=== PATIENT | male | born 1950 | race Hispanic/Latino ===

== ENCOUNTER 2020-04-02 09:05 | Emergency (ER) | payer MEDICARE, OTHER ==
[~2020-04-02] VITALS: Ht 170.2 cm; Wt 63.5 kg
[~2020-04-02 09:05] MED LIST: PANTOPRAZOLE 40 MG 10ML VIAL IV NR
[2020-04-02] MEDS ORDERED: SODIUM CHLORIDE 0.9% 1000ML 1,000 ML IV STA (09:12)
[2020-04-02 09:35] LABS: BASOPHILS % 0.2 % (0.0-1.0); HEMATOCRIT 36.4 % (38.2-49.6); HEMOGLOBIN 12.5 g/dL (14.0-18.0); LYMPHOCYTES # (AUTO) 0.9 (1.0-3.2); LYMPHOCYTES % 8.5 % (18.0-39.1); MEAN CORPUSCULAR HEMOGLOBIN 30.3 pg (28-32); MEAN CORPUSCULAR HGB CONC 34.3 g/dL (31-35); MEAN CORPUSCULAR VOLUME 88.1 fL (81-99); MONOCYTES # (AUTO) 0.6 (0.2-0.8); MONOCYTES % 5.2 % (4.4-11.3); NEUTROPHILS # (AUTO) 9.5 (2.1-6.9); NEUTROPHILS % 85.6 % (38.7-80.0); PLATELET COUNT 259 x10e3/uL (140-360); RED BLOOD COUNT 4.13 x10e6/uL (4.3-5.7); RED CELL DISTRIBUTION WIDTH 12.9 % (11.7-14.4)
[2020-04-02 09:45] LABS: INR 0.96; PROTHROMBIN TIME 13.3 seconds (11.9-14.5)
[2020-04-02 09:56] LABS: ALANINE AMINOTRANSFERASE 116 IU/L (0-55); ALBUMIN 3.3 g/dL (3.5-5.0); ALBUMIN/GLOBULIN RATIO 0.8 (0.8-2.0); ALKALINE PHOSPHATASE 63 IU/L (40-150); ANION GAP 13.5 mmol/L (8-16); BLOOD UREA NITROGEN 28 mg/dL (7-26); BUN/CREATININE RATIO 26 (6-25); CALCIUM 8.9 mg/dL (8.4-10.2); CARBON DIOXIDE 16 mmol/L (22-29); CHLORIDE 110 mmol/L (98-107); CREATINE KINASE 446 IU/L (30-200); CREATININE, SERUM 1.06 mg/dL (0.72-1.25); EST GLOMERULAR FILTRATION RATE > 60 ML/MIN (60-); GLUCOSE 121 mg/dL (74-118); MAGNESIUM 2.3 MG/DL (1.3-2.1); POTASSIUM 3.5 mmol/L (3.5-5.1); SODIUM 136 mmol/L (136-145)
--- NOTE | 2020-04-02 11:02 | Diagnostic Imaging Report ---
EXAMINATION: CHEST SINGLE (PORTABLE) INDICATION: loss of taste, decr po intake COMPARISON: None FINDINGS: AP view TUBES and LINES: None. LUNGS/PLEURA: Lungs are well inflated. There are bilateral patchy opacities predominantly in lower lobes could represent multifocal pneumonia. There is no pleural effusion or pneumothorax. HEART AND MEDIASTINUM: The cardiomediastinal silhouette is unremarkable. BONES AND SOFT TISSUES: No acute osseous lesion. Soft tissues are unremarkable. UPPER ABDOMEN: No free air under the diaphragm. IMPRESSION: Bilateral patchy opacities predominantly in lower lobes could represent multifocal pneumonia in appropriate clinical setting. Signed by: Demetri Villa MD on 04/02/2020 10:58 AM
--- NOTE | 2020-04-02 13:17 | NUR ---
Maru [phone].
--- NOTE | 2020-04-02 14:31 | Emergency Department Note ---
History of Present Illnes History of Present Illness Chief Complaint: COVID PUI History of Present Illness This is a 70 year old male c/o inability to eat x 5 days, LOSS OF APPETITE/LOSS OF TASTE, cough, muscle aches. Historian: Patient Arrival Mode: Car Rotary Shear Cutter Required: No Onset (how long ago): day(s) (5) Radiation: Reports non-radiation Severity: moderate Onset quality: sudden Timing of current episode: constant Progression: unchanged Chronicity: new Context: Denies recent illness Relieving factors: none Exacerbating factors: none Associated symptoms: Reports denies other symptoms Treatments prior to arrival: none Past Medical/Family History Physician Review I have reviewed the patient's past medical and family history. Any updates have been documented here. Past Medical History Recent Fever: No Clinical Suspicion of Infectio: Yes New/Unexplained Change in Ment: No Past Medical History: Hypertension, Hyperlipedemia Other Surgery: stents Social History Smoking Cessation: Never Smoker Counseling Performed: No Alcohol Use: None Any Illegal Drug Use: No Other Any Pre-Existing Lines (PICC,: No Review of Systems Review of Systems Constitutional: Reports no symptoms EENTM: Reports no symptoms Cardiovascular: Reports no symptoms Respiratory: Reports no symptoms Gastrointestinal: Reports as per HPI Genitourinary: Reports no symptoms Musculoskeletal: Reports no symptoms Integumentary: Reports no symptoms Neurological: Reports no symptoms Psychological: Reports no symptoms Endocrine: Reports no symptoms Hematological/Lymphatic: Reports no symptoms Physical Exam Related Data Allergies: Coded Allergies: No Known Allergies (Unverified , 04/02/20) Triage Vital Signs Vital Signs Date Time Temp Pulse Resp B/P (MAP) Pulse Ox O2 Delivery O2 Flow Rate FiO2 04/02/20 09:10 98.0 115 18 119/65 98 04/02/20 09:10 Room Air Vital signs reviewed: Yes Physical Exam CONSTITUTIONAL Constitutional: Present well-developed, Present well-nourished HENT HENT: Present mucosae dry HENT L/R: Present left ext ear normal, Present right ext ear normal EYES Eyes: Reports PERRL, Reports conjunctivae normal NECK Neck: Present ROM normal PULMONARY Pulmonary: Present effort normal, Present breath sounds normal CARDIOVASCULAR Cardiovascular: Present regular rhythm, Present heart sounds normal, Present capillary refill normal, Present normal rate GASTROINTESTINAL Abdominal: Present soft, Present nontender, Present bowel sounds normal GENITOURINARY Genitourinary: Present exam deferred SKIN Skin: Present warm, Present dry MUSCULOSKELETAL Musculoskeletal: Present ROM normal NEUROLOGICAL Neurological: Present alert, Present oriented x 3, Present no gross motor or sensory deficits PSYCHOLOGICAL Psychological: Present mood/affect normal, Present judgement normal Results Laboratory Result Diagram: 04/02/2025 04/02/20 0925 Laboratory Laboratory Tests Test 04/02/20 11:54 04/02/20 09:25 White Blood Count 11.11 x10e3/uL (4.8-10.8) Red Blood Count 4.13 x10e6/uL (4.3-5.7) Hemoglobin 12.5 g/dL (14.0-18.0) Hematocrit 36.4 % (38.2-49.6) Mean Corpuscular Volume 88.1 fL (81-99) Mean Corpuscular Hemoglobin 30.3 pg (28-32) Mean Corpuscular Hemoglobin Concent 34.3 g/dL (31-35) Red Cell Distribution Width 12.9 % (11.7-14.4) Platelet Count 259 x10e3/uL (140-360) Neutrophils (%) (Auto) 85.6 % (38.7-80.0) Lymphocytes (%) (Auto) 8.5 % (18.0-39.1) Monocytes (%) (Auto) 5.2 % (4.4-11.3) Eosinophils (%) (Auto) 0.0 % (0.0-6.0) Basophils (%) (Auto) 0.2 % (0.0-1.0) Neutrophils # (Auto) 9.5 (2.1-6.9) Lymphocytes # (Auto) 0.9 (1.0-3.2) Monocytes # (Auto) 0.6 (0.2-0.8) Eosinophils # (Auto) 0.0 (0.0-0.4) Basophils # (Auto) 0.0 (0.0-0.1) Absolute Immature Granulocyte (auto 0.06 x10e3/uL (0-0.1) Prothrombin Time 13.3 seconds (11.9-14.5) Prothromb Time International Ratio 0.96 Activated Partial Thromboplast Time 30.0 seconds (23.8-35.5) Sodium Level 136 mmol/L (136-145) Potassium Level 3.5 mmol/L (3.5-5.1) Chloride Level 110 mmol/L (98-107) Carbon Dioxide Level 16 mmol/L (22-29) Anion Gap 13.5 mmol/L (8-16) Blood Urea Nitrogen 28 mg/dL (7-26) Creatinine 1.06 mg/dL (0.72-1.25) Estimat Glomerular Filtration Rate > 60 ML/MIN (60-) BUN/Creatinine Ratio 26 (6-25) Glucose Level 121 mg/dL (74-118) Calcium Level 8.9 mg/dL (8.4-10.2) Magnesium Level 2.3 MG/DL (1.3-2.1) Total Bilirubin 0.6 mg/dL (0.2-1.2) Aspartate Amino Transf (AST/SGOT) 62 IU/L (5-34) Alanine Aminotransferase (ALT/SGPT) 116 IU/L (0-55) Alkaline Phosphatase 63 IU/L (40-150) Creatine Kinase 446 IU/L (30-200) Creatine Kinase MB 1.40 ng/mL (0-5.0) Troponin I 0.042 ng/mL (0-0.300) Total Protein 7.3 g/dL (6.5-8.1) Albumin 3.3 g/dL (3.5-5.0) Globulin 4.0 g/dL (2.3-3.5) Albumin/Globulin Ratio 0.8 (0.8-2.0) Lab results reviewed: Yes Imaging Imaging results reviewed: Yes Impressions EXAMINATION: CHEST SINGLE (PORTABLE) INDICATION: loss of taste, decr po intake COMPARISON: None FINDINGS: AP view TUBES and LINES: None. LUNGS/PLEURA: Lungs are well inflated. There are bilateral patchy opacities predominantly in lower lobes could represent multifocal pneumonia. There is no pleural effusion or pneumothorax. HEART AND MEDIASTINUM: The cardiomediastinal silhouette is unremarkable. BONES AND SOFT TISSUES: No acute osseous lesion. Soft tissues are unremarkable. UPPER ABDOMEN: No free air under the diaphragm. IMPRESSION: Bilateral patchy opacities predominantly in lower lobes could represent multifocal pneumonia in appropriate clinical setting. Signed by: Demetri Villa MD on 04/02/2020 10:58 AM Procedures 12 Lead ECG Interpretation ECG Interpretation : ECG: ECG 1 Rotary Shear Cutter: Interpreted by ED physician Date: Apr 02, 2020 Rhythm: sinus tachycardia Rate: tachycardia (110) QRS axis: normal Conduction: right bundle branch block ST segments normal: Yes T waves normal: Yes Clinical Impression: abnormal ECG Assessment & Plan Medical Decision Making MDM CBC, CHEM, CARDIACS, ECG, CXR, COVID SWAB, ECG - R/O PNEUMONIA/COVID, DEHYDRATION, ELECTROLYTE ABNL, RENAL INSUFF, STEMI/NSTEMI Reassessment Reassessment PT FEELS BETTER, WANTS TO GO HOME, SELF-QUARANTINE, ZPACK, DECADRON, PRONING, ZOFRAN, PUSH PO FLUIDS, F/U PCP, RTED SX'S WORSEN Assessment & Plan Final Impression: (1) Dehydration (2) Loss of taste (3) COVID-19 Depart Disposition: HOME, SELF-CARE Last Vital Signs Date Time Temp Pulse Resp B/P (MAP) Pulse Ox O2 Delivery O2 Flow Rate FiO2 04/02/20 13:54 84 25 94/56 96 04/02/20 09:10 98.0 Room Air Medications in the ED Pantoprazole Sodium 40 mg ONCE IV Last administered on 04/02/20at 09:54; Admin Dose 40 MG; Start 04/02/20 at 09:00; Stop 04/02/20 at 10:00; Status DC Sodium Chloride 1,000 ml @ 0 mls/hr Q0M STAT IV Last administered on 04/02/20at 09:50; Admin Dose 999 MLS/HR; Start 04/02/20 at 09:12; Stop 04/02/20 at 09:14; Status DC FELECIA CRAWFORD MD Apr 02, 2020 14:31
== END 2020-04-02 14:50 | disposition home or self-care (01) ==
LOC: ER 09:25
DX: U07.1 COVID-19 (principal); R05 Cough; E86.0 Dehydration; I10 Essential (primary) hypertension; E78.5 Hyperlipidemia, unspecified; Z95.5 Presence of coronary angioplasty implant and graft; R94.31 Abnormal electrocardiogram [ECG] [EKG]
CPT/HCPCS: 36415; 71045; 80053; 82550; 82553; 83735; 84484; 85025; 85610; 85730; 87635; 93005; 99284; C9113; J7030; U0002